=== PATIENT | male | born 1960 | race Caucasian/White ===

== ENCOUNTER 2018-11-02 10:32 | Emergency (ER) | payer BC ==
[~2018-11-02] VITALS: Ht 188 cm; Wt 99.0 kg
[~2018-11-02 10:32] MED LIST: FLEC100T PO; LISI-600 PO; PANT-47 PO
[2018-11-02 10:58] LABS: BASOPHILS # (AUTO) 0.1 X10'3 (0-0.2); BASOPHILS % (AUTO) 0.4 % (0-1); EOSINOPHILS # (AUTO) 0.4 X10'3 (0-0.9); EOSINOPHILS % (AUTO) 2.6 % (0-6); HEMATOCRIT 45.3 % (42.0-52.0); HEMOGLOBIN 14.3 g/dl (14.0-17.9); LYMPHOCYTES # (AUTO) 1.4 X10'3 (1.1-4.8); LYMPHOCYTES % (AUTO) 9.3 % (21-51); MEAN CORPUSCULAR HEMOGLOBIN 22.3 PG (27.0-31.0); MEAN CORPUSCULAR HGB CONC 31.5 g/dL (33.0-36.5); MEAN CORPUSCULAR VOLUME 70.7 FL (78-98); MEAN PLATELET VOLUME 7.9 FL (7.4-10.4); MONOCYTES # (AUTO) 0.4 X10'3 (0-0.9); MONOCYTES % (AUTO) 2.6 % (2-12); NEUTROPHILS # (AUTO) 12.6 X10'3 (1.8-7.7); NEUTROPHILS % (AUTO) 85.1 % (42-75); PLATELET COUNT 485 X10'3 (140-440); RED BLOOD COUNT 6.41 X10'6 (4.70-6.10); RED CELL DISTRIBUTION WIDTH 16.5 % (11.5-14.5); WHITE BLOOD COUNT 14.8 X10'3 (4.5-11.0)
[2018-11-02] MEDS ORDERED: DILT240C PO (10:59)
[2018-11-02] MEDS ORDERED: HYDR500C18 PO (10:59)
[2018-11-02] MEDS ORDERED: NAPR-56 PO (10:59)
[2018-11-02] MEDS ORDERED: FLEC100T2 PO (10:59)
[2018-11-02] MEDS ORDERED: ASPI-1053 PO (11:00)
[2018-11-02 11:11] LABS: ALANINE AMINOTRANSFERASE 30 U/L (12-78); ALBUMIN 4.4 G/DL (3.4-5.0); ALBUMIN/GLOBULIN RATIO 1.6 (1.1-1.5); ALKALINE PHOSPHATASE 93 IU/L (46-116); ANION GAP 8 (8-16); ASPARTATE AMINO TRANSFERASE 16 U/L (10-37); BILIRUBIN,TOTAL 0.3 MG/DL (0.1-1.0); BLOOD UREA NITROGEN 21 MG/DL (7-18); BUN/CREATININE RATIO 17.2 (5.4-32.0); CHLORIDE 107 MMOL/L (99-107); CREATININE 1.22 MG/DL (0.60-1.10); GLUCOSE 111 MG/DL (70-104); POTASSIUM 4.4 MMOL/L (3.5-5.1); SODIUM 142 MMOL/L (135-145); TOTAL CARBON DIOXIDE 27.1 MMOL/L (24-32); TOTAL PROTEIN 7.1 G/DL (6.4-8.2); eGFR 61 ML/MIN
[2018-11-02 11:15] LABS: INR 1.1 INR; PARTIAL THROMBOPLASTIN TIME 29 SECONDS (22-32); PROTHROMBIN TIME 11.4 SECONDS (9.0-12.0)
[2018-11-02 11:58] LABS: D-DIMER 0.27 MG/L FEU (0-0.50)
[2018-11-02 13:21] VITALS: BP 136/90
== END 2018-11-02 13:22 | disposition home or self-care (01) ==
LOC: ER 10:32
DX: R07.89 Other chest pain (principal); R42 Dizziness and giddiness; R06.02 Shortness of breath; I48.91 Unspecified atrial fibrillation; I10 Essential (primary) hypertension; Z88.2 Allergy status to sulfonamides; Z79.82 Long term (current) use of aspirin
CPT/HCPCS: 36415; 71045; 80053; 83880; 84145; 84484; 85025; 85379; 85610; 85730; 93005; 99284

== ENCOUNTER 2022-02-11 10:04 | Emergency (ER) | payer BC ==
[~2022-02-11] VITALS: Ht 188 cm; Wt 100.0 kg
[~2022-02-11 10:04] MED LIST changes: +ASPI-1053 PO; +DILT-94 PO; -FLEC100T PO; +FLEC100T2 PO; +HYDR500C18 PO; -LISI-600 PO; +LISI20TA28 PO; +NAPR-56 PO
[2022-02-11 10:56] LABS: BASOPHILS # (AUTO) 0.1 X10'3 (0-0.2); BASOPHILS % (AUTO) 0.7 % (0-1); EOSINOPHILS # (AUTO) 0.4 X10'3 (0-0.9); EOSINOPHILS % (AUTO) 2.8 % (0-6); HEMATOCRIT 47.4 % (42.0-52.0); LYMPHOCYTES # (AUTO) 1.1 X10'3 (1.1-4.8); LYMPHOCYTES % (AUTO) 7.3 % (21-51); MEAN CORPUSCULAR HEMOGLOBIN 22.3 PG (27.0-31.0); MEAN CORPUSCULAR HGB CONC 31.6 g/dL (33.0-36.5); MEAN CORPUSCULAR VOLUME 70.6 FL (78-98); MEAN PLATELET VOLUME 7.6 FL (7.4-10.4); MONOCYTES # (AUTO) 0.4 X10'3 (0-0.9); MONOCYTES % (AUTO) 2.5 % (2-12); NEUTROPHILS % (AUTO) 86.7 % (42-75); PLATELET COUNT 566 X10'3 (140-440); RED BLOOD COUNT 6.72 X10'6 (4.70-6.10); RED CELL DISTRIBUTION WIDTH 17.3 % (11.5-14.5)
[2022-02-11 11:16] LABS: ANION GAP 8 (8-16); BLOOD UREA NITROGEN 17 MG/DL (7-18); BUN/CREATININE RATIO 12.8 (5.4-32.0); CHLORIDE 110 MMOL/L (99-107); CREATININE 1.33 MG/DL (0.60-1.10); GLUCOSE 101 MG/DL (70-104); POTASSIUM 4.3 MMOL/L (3.5-5.1); SODIUM 145 MMOL/L (135-145); TOTAL CARBON DIOXIDE 26.9 MMOL/L (24-32)
[2022-02-11 11:17] LABS: ALANINE AMINOTRANSFERASE 34 U/L (12-78); ALBUMIN 4.2 G/DL (3.4-5.0); ALBUMIN/GLOBULIN RATIO 1.6 (1.1-1.5); ALKALINE PHOSPHATASE 88 IU/L (46-116); ASPARTATE AMINO TRANSFERASE 18 U/L (10-37); BILIRUBIN,TOTAL 0.4 MG/DL (0.1-1.0); CALCIUM 8.8 MG/DL (8.5-10.1); TOTAL PROTEIN 6.9 G/DL (6.4-8.2); eGFR 55 ML/MIN
[2022-02-11 15:44] VITALS: BP 140/90
== END 2022-02-11 15:48 | disposition home or self-care (01) ==
LOC: ER 10:04
DX: R07.89 Other chest pain (principal); I10 Essential (primary) hypertension; Z88.2 Allergy status to sulfonamides; Z88.8 Allergy status to other drugs, medicaments and biological substances
CPT/HCPCS: 36415; 71045; 80053; 83880; 84484; 85025; 93005; 99285

== ENCOUNTER 2022-11-01 16:56 | Emergency (ER) | payer BC ==
[~2022-11-01] VITALS: Ht 188 cm; Wt 103.0 kg
[2022-11-01 17:23] VITALS: BP 142/115
[2022-11-01 18:54] LABS: BASOPHILS # (AUTO) 0.1 X10'3 (0-0.2); BASOPHILS % (AUTO) 1.3 % (0-1); EOSINOPHILS # (AUTO) 0.3 X10'3 (0-0.9); EOSINOPHILS % (AUTO) 3.3 % (0-6); HEMATOCRIT 44.7 % (42.0-52.0); HEMOGLOBIN 14.3 g/dl (14.0-17.9); LYMPHOCYTES # (AUTO) 1.4 X10'3 (1.1-4.8); LYMPHOCYTES % (AUTO) 14.2 % (21-51); MEAN CORPUSCULAR HGB CONC 31.9 g/dL (33.0-36.5); MEAN CORPUSCULAR VOLUME 78.5 FL (78-98); MEAN PLATELET VOLUME 7.6 FL (7.4-10.4); MONOCYTES # (AUTO) 0.4 X10'3 (0-0.9); MONOCYTES % (AUTO) 4.3 % (2-12); NEUTROPHILS # (AUTO) 7.8 X10'3 (1.8-7.7); NEUTROPHILS % (AUTO) 76.9 % (42-75); PLATELET COUNT 376 X10'3 (140-440); RED BLOOD COUNT 5.69 X10'6 (4.70-6.10); RED CELL DISTRIBUTION WIDTH 17.9 % (11.5-14.5); WHITE BLOOD COUNT 10.1 X10'3 (4.5-11.0)
[2022-11-01 19:04] LABS: ALANINE AMINOTRANSFERASE 57 U/L (12-78); ALBUMIN 3.9 G/DL (3.4-5.0); ALBUMIN/GLOBULIN RATIO 1.3 (1.1-1.5); ALKALINE PHOSPHATASE 96 IU/L (46-116); ANION GAP 8 (8-16); ASPARTATE AMINO TRANSFERASE 25 U/L (10-37); BILIRUBIN,TOTAL 0.3 MG/DL (0.1-1.0); BLOOD UREA NITROGEN 17 MG/DL (7-18); BUN/CREATININE RATIO 13.5 (10.0-20.0); CALCIUM 8.5 MG/DL (8.5-10.1); CHLORIDE 105 MMOL/L (99-107); CREATININE 1.26 MG/DL (0.60-1.10); GLUCOSE 119 MG/DL (70-104); POTASSIUM 4.2 MMOL/L (3.5-5.1); SODIUM 140 MMOL/L (135-145); TOTAL CARBON DIOXIDE 27.1 MMOL/L (24-32); TOTAL PROTEIN 6.9 G/DL (6.4-8.2); eGFR 58 ML/MIN
[2022-11-01 19:07] LABS: LIPASE 56 U/L (73-393)
[2022-11-01 19:36] LABS: CLARITY,URINE CLEAR (Clear); COLOR,URINE YELLOW (Yellow); GLUCOSE, URINE NEGATIVE (Neg); KETONES,URINE TRACE mg/dl (Neg); LEUKOCYTE ESTERASE ,URINE NEGATIVE (Neg); NITRITES, URINE NEGATIVE (Neg); OCCULT BLOOD,URINE NEGATIVE (Neg); PH,URINE 5.5 (4.8-8.0); PROTEIN,URINE NEGATIVE (Neg); UROBILINOGEN,URINE 0.2 E.U/dL (0.2-1.0)
[2022-11-01 19:48] LABS: UA COLLECTION TYPE VOIDED
[2022-11-01] MEDS ORDERED: polyethylene glycol 3350 17gm powd pack PO STA (20:38)
[2022-11-01] MEDS ORDERED: traMADol 50MG tablet PO ONE (20:40)
[2022-11-01] MEDS ORDERED: simethicone 80mg chew tab PO ONE (20:40)
[2022-11-01] MEDS ORDERED: ondansetron 4mg rapidly disintigrating tab PO ONE (20:45)
[2022-11-01] MEDS ORDERED: TRAM50TA2 PO (20:48)
[2022-11-01] MEDS ORDERED: ONDA4TAB12 PO (20:48)
[2022-11-01] MEDS ORDERED: POLY119P2 PO (20:48)
== END 2022-11-01 21:15 | disposition home or self-care (01) ==
LOC: ER 16:58
DX: D45 Polycythemia vera (principal); R10.9 Unspecified abdominal pain; K59.00 Constipation, unspecified; I10 Essential (primary) hypertension; Z88.2 Allergy status to sulfonamides; Z79.82 Long term (current) use of aspirin; Z79.899 Other long term (current) drug therapy
CPT/HCPCS: 36415; 74176; 80053; 81003; 83690; 84484; 85025; 93005; 99285

== ENCOUNTER 2023-01-21 03:50 | Inpatient (IN) | payer BC ==
[~2023-01-21] VITALS: Ht 188 cm; Wt 101.8 kg
[~2023-01-21 03:50] MED LIST changes: +ONDA4TAB12 PO; +POLY119P2 PO
[2023-01-21] MEDS ORDERED: normal saline 1000ML IV soln IVB ONE (04:30)
[2023-01-21 04:57] LABS: HEMOGLOBIN 13.3 g/dl (14.0-17.9); WHITE BLOOD COUNT 13.8 X10'3 (4.5-11.0)
[2023-01-21 04:58] LABS: CLARITY,URINE CLOUDY (Clear); COLOR,URINE YELLOW (Yellow); GLUCOSE, URINE NEGATIVE (Neg); KETONES,URINE NEGATIVE (Neg); LEUKOCYTE ESTERASE ,URINE TRACE (Neg); NITRITES, URINE POSITIVE (Neg); OCCULT BLOOD,URINE LARGE (Neg); PROTEIN,URINE >=300 mg/dl (Neg)
[2023-01-21 04:59] LABS: BASOPHILS % (AUTO) 0.1 % (0-1); EOSINOPHILS % (AUTO) 0.2 % (0-6); HEMATOCRIT 39.8 % (42.0-52.0); LYMPHOCYTES # (AUTO) 0.6 X10'3 (1.1-4.8); MEAN CORPUSCULAR HEMOGLOBIN 26.3 PG (27.0-31.0); MEAN CORPUSCULAR HGB CONC 33.4 g/dL (33.0-36.5); MEAN CORPUSCULAR VOLUME 78.7 FL (78-98); MEAN PLATELET VOLUME 8.4 FL (7.4-10.4); MONOCYTES # (AUTO) 0.7 X10'3 (0-0.9); MONOCYTES % (AUTO) 5.2 % (2-12); NEUTROPHILS # (AUTO) 12.5 X10'3 (1.8-7.7); NEUTROPHILS % (AUTO) 90.5 % (42-75); PLATELET COUNT 385 X10'3 (140-440); RED BLOOD COUNT 5.05 X10'6 (4.70-6.10); RED CELL DISTRIBUTION WIDTH 19.5 % (11.5-14.5)
[2023-01-21] MEDS ORDERED: vancomycin 1,750 MG in NS 350ml IV soln IV ONE (05:00)
[2023-01-21 05:02] LABS: UA COLLECTION TYPE CLN CATCH MIDSTREAM
[2023-01-21 05:04] LABS: ALANINE AMINOTRANSFERASE 36 U/L (12-78); ALBUMIN 3.8 G/DL (3.4-5.0); ALBUMIN/GLOBULIN RATIO 1.2 (1.1-1.5); ALKALINE PHOSPHATASE 91 IU/L (46-116); ANION GAP 9 (8-16); ASPARTATE AMINO TRANSFERASE 16 U/L (10-37); BLOOD UREA NITROGEN 17 MG/DL (7-18); BUN/CREATININE RATIO 10.4 (10.0-20.0); CALCIUM 8.7 MG/DL (8.5-10.1); CHLORIDE 103 MMOL/L (99-107); CREATININE 1.63 MG/DL (0.60-1.10); GLUCOSE 154 MG/DL (70-104); LIPASE < 50 U/L (73-393); POTASSIUM 3.1 MMOL/L (3.5-5.1); SODIUM 138 MMOL/L (135-145); TOTAL PROTEIN 7.1 G/DL (6.4-8.2); eGFR 43 ML/MIN
[2023-01-21 05:07] LABS: WBC,URINE TNTC /HPF (0-4)
[2023-01-21 05:08] LABS: BACTERIA,URINE 3+ /HPF (Neg); MUCUS STRANDS FEW /LPF (Neg); RBC,URINE 20-50 /HPF (0-2); SQUAMOUS EPITHELIAL CELL,UR FEW /LPF (FEW); TRANSITIONAL EPI CELLS,URINE FEW /HPF
[2023-01-21] MEDS ORDERED: cefepime 2g/NS 100ml ADVANTAGE 100 ML IV ONE (06:00)
[2023-01-21 06:32] LABS: ANISOCYTOSIS 2+; PLATELET ESTIMATE NORMAL; TOTAL CELLS COUNTED 100
[2023-01-21 06:33] LABS: ELLIPTOCYTES 1+; HYPOCHROMASIA 1+; MICROCYTOSIS 1+
[2023-01-21] MEDS ORDERED: potassium Cl 20 mEq SR tablet PO STA (07:22)
[2023-01-21] MEDS ORDERED: acetaminophen 325mg tablet PO PRN ×2 (08:55)
[2023-01-21] MEDS ORDERED: magnesium Cl slow-release 64mg tablet PO PRN (08:55)
[2023-01-21] MEDS ORDERED: potassium Cl 20 mEq SR tablet PO PRN ×2 (08:55)
[2023-01-21] MEDS ORDERED: morphine 2 MG/ML inj. syringe IV PRN (08:55)
[2023-01-21] MEDS ORDERED: magnesium 2GM in 50ml NS 50 ML IV PRN (08:55)
[2023-01-21] MEDS ORDERED: HYDROcodone/acetaminophen 5mg/325mg tablet PO PRN (08:55)
[2023-01-21] MEDS ORDERED: magnesium 4gm in 100ml NS 100 ML IV PRN (08:55)
[2023-01-21] MEDS ORDERED: potassium Cl 40MEQ/1/2NS 520ml 520 ML IV PRN (08:55)
[2023-01-21] MEDS ORDERED: ondansetron/PF 4mg/2ml inj IV PRN (08:55)
[2023-01-21] MEDS: normal saline 1000ml 1,000 ML IV SCH ×2 (11:01→20:15)
[2023-01-21 11:30] VITALS: BP 153/86
[2023-01-21] MEDS ORDERED: CELE-193 PO (13:29)
[2023-01-21] MEDS ORDERED: FAMO20TA8 PO (13:51)
[2023-01-21] MEDS ORDERED: TRAM50TA2 PO (13:51)
[2023-01-21] MEDS ORDERED: RUXO20TA PO (13:51)
[2023-01-21] MEDS ORDERED: ANAG1CAP3 PO (13:51)
[2023-01-21] MEDS ORDERED: ONDA4TAB12 PO (13:51)
[2023-01-21] MEDS ORDERED: ALLO300T8 PO (13:51)
[2023-01-21] MEDS ORDERED: ondansetron 4mg rapidly disintigrating tab PO PRN (17:35)
[2023-01-21 18:00] VITALS: BP 170/86
--- NOTE | 2023-01-21 18:30 | NUR ---
Patient in room [facility]TH[facility] 4024. I have received report from ABBEY BLAND and had the opportunity to ask questions and assume patient care.
--- NOTE | 2023-01-21 18:39 | NUR ---
Problems reprioritized. Patient report given, questions answered & plan of care reviewed with EDWINA Penny.
--- NOTE | 2023-01-21 19:43 | NUR ---
TRANSFER OF CARE TO PRUDENCE RN WITH VERBAL REPORT
[2023-01-21] MEDS ORDERED: enoxaparin 40mg/0.4ml syringe SQ SCH (20:00)
[2023-01-21] MEDS: famotidine 20mg tablet PO SCH (20:14)
[2023-01-21] MEDS: JAKAFI 20 MG PO SCH (21:28)
[2023-01-21 22:00] VITALS: BP 147/83
[2023-01-22] MEDS: normal saline 1000ml 1,000 ML IV SCH ×2 (04:55→14:55)
[2023-01-22 06:00] VITALS: BP 159/95
[2023-01-22 06:36] LABS: BASOPHILS % (AUTO) 0.2 % (0-1); EOSINOPHILS # (AUTO) 0.1 X10'3 (0-0.9); EOSINOPHILS % (AUTO) 0.8 % (0-6); HEMATOCRIT 36.5 % (42.0-52.0); HEMOGLOBIN 12.1 g/dl (14.0-17.9); LYMPHOCYTES # (AUTO) 0.5 X10'3 (1.1-4.8); LYMPHOCYTES % (AUTO) 6.6 % (21-51); MEAN CORPUSCULAR HEMOGLOBIN 25.9 PG (27.0-31.0); MEAN CORPUSCULAR HGB CONC 33.1 g/dL (33.0-36.5); MEAN CORPUSCULAR VOLUME 78.3 FL (78-98); MEAN PLATELET VOLUME 8.4 FL (7.4-10.4); MONOCYTES # (AUTO) 0.5 X10'3 (0-0.9); MONOCYTES % (AUTO) 5.9 % (2-12); NEUTROPHILS # (AUTO) 7.1 X10'3 (1.8-7.7); NEUTROPHILS % (AUTO) 86.5 % (42-75); PLATELET COUNT 318 X10'3 (140-440); RED BLOOD COUNT 4.67 X10'6 (4.70-6.10); RED CELL DISTRIBUTION WIDTH 19.5 % (11.5-14.5); WHITE BLOOD COUNT 8.2 X10'3 (4.5-11.0)
[2023-01-22 06:49] LABS: ALANINE AMINOTRANSFERASE 29 U/L (12-78); ALBUMIN 2.9 G/DL (3.4-5.0); ALKALINE PHOSPHATASE 75 IU/L (46-116); ANION GAP 8 (8-16); ASPARTATE AMINO TRANSFERASE 14 U/L (10-37); BILIRUBIN,TOTAL 0.6 MG/DL (0.1-1.0); BLOOD UREA NITROGEN 13 MG/DL (7-18); BUN/CREATININE RATIO 11.5 (10.0-20.0); CALCIUM 8.3 MG/DL (8.5-10.1); CHLORIDE 108 MMOL/L (99-107); CREATININE 1.13 MG/DL (0.60-1.10); GLUCOSE 100 MG/DL (70-104); POTASSIUM 3.8 MMOL/L (3.5-5.1); SODIUM 141 MMOL/L (135-145); TOTAL CARBON DIOXIDE 25.4 MMOL/L (24-32); TOTAL PROTEIN 5.9 G/DL (6.4-8.2); eGFR 66 ML/MIN
--- NOTE | 2023-01-22 07:00 | NUR ---
Patient in room [facility]TH[facility] 4024. I have received report from EDWINA Chong and had the opportunity to ask questions and assume patient care.
[2023-01-22 07:44] LABS: ANISOCYTOSIS 1+; ELLIPTOCYTES 1+; MICROCYTOSIS 1+; PLATELET ESTIMATE NORMAL
[2023-01-22] MEDS ORDERED: allopurinol 300 MG tablet PO SCH (08:00)
[2023-01-22] MEDS ORDERED: diltiazem CD 120mg capsule (once-daily) PO SCH (08:00)
[2023-01-22] MEDS ORDERED: pantoprazole 40mg Tablet.DR PO SCH (08:00)
[2023-01-22] MEDS ORDERED: CefTRIAXone inj 2,000 MG in dextrose 5%-water 100 ML IV SCH (08:00)
[2023-01-22] MEDS ORDERED: flecainide 50mg tablet PO SCH (08:00)
[2023-01-22] MEDS: famotidine 20mg tablet PO SCH (08:56)
[2023-01-22] MEDS: JAKAFI 20 MG PO SCH (08:57)
[2023-01-22 10:00] VITALS: BP 170/84
[2023-01-22] MEDS ORDERED: tamsulosin 0.4mg capsule PO ONE (15:02)
[2023-01-22] MEDS ORDERED: CIPR-259 PO (15:11)
[2023-01-22] MEDS ORDERED: FLO0.4C PO (15:11)
--- NOTE | 2023-01-22 16:25 | NUR ---
Patient was discharged at 1605 with instructions verbalizing understanding of instructions in wheelchair accompanied by spouse and nursing staff going home via private vehicle. All lines and tubes including PIV with cannula intact have been removed. Education has been provided at bedside and all questions have been answered. Home medications have been brought from pharmacy and delivered to the patient bedside. Patient is stable and appropriate for discharge.
== END 2023-01-22 16:00 | disposition home or self-care (01) | DRG 872 ==
LOC: ER 03:50 → ED HOLD 08:56 → EDBEDREQ 10:43 → ORTHO 4S 11:46
PROVIDERS: ADMIT Internal Medicine; ATTEND Internal Medicine
DX: A41.9 Sepsis, unspecified organism (principal); N12 Tubulo-interstitial nephritis, not specified as acute or chronic; D45 Polycythemia vera; E87.6 Hypokalemia; I12.9 Hypertensive chronic kidney disease with stage 1 through stage 4 chronic kidney disease, or unspecified chronic kidney disease; I48.91 Unspecified atrial fibrillation; N18.30 Chronic kidney disease, stage 3 unspecified; R65.20 Severe sepsis without septic shock; Z88.2 Allergy status to sulfonamides; Z88.8 Allergy status to other drugs, medicaments and biological substances; Z79.899 Other long term (current) drug therapy
CPT/HCPCS: 36415; 71045; 74176; 80053; 81001; 83605; 83690; 84145; 85007; 85008; 85025; 87040; 87077; 87081; 87088; 87186; 99285; G0378; J0692; J0696; J1650; J3370; J7030; J7040; J7060

== ENCOUNTER 2025-01-26 20:18 | Emergency (ER) | payer BC ==
[~2025-01-26] VITALS: Ht 188 cm; Wt 95.5 kg
[~2025-01-26 20:18] MED LIST changes: +ALLO300T8 PO; +ANAG1CAP10 PO; -ASPI-1053 PO; +FAMO20TA8 PO; -HYDR500C18 PO; -LISI20TA28 PO; -NAPR-56 PO; +ONDA-243 PO; -ONDA4TAB12 PO; -POLY119P2 PO; +RUXO20TA PO; +TRAM50TA2 PO
[2025-01-26 20:20] VITALS: TEMP 97.8
--- NOTE | 2025-01-26 20:38 | Physician Documentation ---
History of Present Illness ~ Chief Complaint: Urinary Retention Stated Complaint: UNABLE TO URINATE Time Seen by MD: 21:07 Primary Medical Doctor: MUSA Source: patient, family HPI Patient is seen today with complaints of likely urinary retention. Patient states for the last couple of days he has only been able to manage a dribble of the urine. Patient states he had to have a Neri catheter placed a few months ago. Patient states he is currently under treatment for urinary tract infection with ciprofloxacin. Patient is seen today with his who states that his urine actually seems a little more clear and he does not seen to be feverish anymore that they were concerned about patient has urinary symptoms in his possible urinary retention. Medication Reconciliation Allergies: Coded Allergies: Sulfa (Sulfonamide Antibiotics) (Verified Allergy, Unknown, HIVES, 01/26/25) lorazepam (Verified Adverse Reaction, Severe, GETS SEVERLY AGITATED AND VIOLENT, 01/26/25) Scheduled Allopurinol (Allopurinol), 1 TAB PO DAILY, (Reported) Anagrelide HCl (Anagrelide HCl), 1 CAP PO DAILY, (Reported) Diltiazem HCl (Diltiazem 24Hr ER), 1 CAP PO DAILY, (Reported) Famotidine (Famotidine), 1 TAB PO Q12H, (Reported) Flecainide Acetate (Flecainide Acetate), 1 TAB PO DAILY, (Reported) Pantoprazole Sodium (PROTONIX tablet), 1 TABLET PO DAILY, (Reported) Ruxolitinib Phosphate (Jakafi), 1 TAB PO BID, (Reported) Scheduled PRN ONDANSETRON ODT 4mg tablet (Ondansetron Odt), 1 TABLET PO Q6H PRN for nausea/vomiting, (Reported) Tramadol Hcl (Tramadol Hcl), 1 TAB PO Q6H PRN for mild to moderate pain 1-6, (Reported) Past Medical History Past Medical History: Atrial Fibrillation, Hypertension, GI Bleed, *CANCER* Past Surgical History: noncontributory Alcohol Use: None Drug Use: none Lives with: Spouse Lives In: Home Occupation: employed Review of Systems Constitutional: Denies: chills, fever, weakness Eyes: Denies: pain, blurred vision ENT: Denies: ear pain, nose pain, throat pain, mouth pain Respiratory: Denies: cough, shortness of breath Cardiovascular: Denies: chest pain, palpitations Gastrointestinal: Denies: abdominal pain, nausea, vomiting Genitourinary: Denies: burning, dysuria Male Genitalia: Denies: penile discharge, testicular pain Neurological: Denies: headache, dizziness Musculoskeletal: Denies: pain, swelling Integumentary: Denies: rash, lesions Allergic/Immunologic: Denies: hives, itching Hematologic/Lymphatic: Denies: no symptoms reported Psychiatric: Denies: depression, anxiety Physical Exam Vital Signs: Temperature: 97.8, Source: Oral, Heart Rate: 81, Respiratory Rate: 17, BP: 117/82, Pulse Oximetry: 98, Weight: 95.450 Physical Exam General: Awake and Alert, no acute distress. HEENT: Conjunctiva pink, Sclera clear, Mucus Membranes moist. Neck: Supple without masses and tenderness. Resp: Unlabored. Lungs clear to auscultation bilaterally. Heart: Regular Rate and rhythm, normal S1 and S2 without murmur, rub or gallop. Abdomen: Soft and non tender no organomegaly . Patient on exam has no CVA tenderness. Extremities: No cyanosis,clubbing or edema. Skin: Warm and Dry. Progress Results/Orders Results/Orders Orders - ABHINAV MCMULLEN PAC Bladder Scan (01/26/25 ) * (A) Neri- Protocol * Q12H@07,19 (01/26/25 20:57) Cult Urine + [place] [address] (01/26/25 21:41) Ceftriaxone Im Kit W/Lidocaine (Rocephin (01/26/25 22:21) Completed Orders - ABHINAV MCMULLEN PAC Cbc/Diff (01/26/25 20:22) BMP (01/26/25 20:22) Lipase (01/26/25 20:22) CMP (01/26/25 20:22) Lidocaine 2% Jelly 11ml Syr (Glydo-Lidoc (01/26/25 21:00) Ua W/Microscopic, Cult If Ind (01/26/25 21:05) Medications Received in ER Medications (Trade) Dose Ordered Sig/Marylin Route PRN Reason Start Time Stop Time Status Last Admin Dose Admin (GLYDO-Lidocaine 2% Topical Jelly 11mL syringe) 1 applic ONCE ONCE TOP 01/26/25 21:00 01/26/25 21:02 DC 01/26/25 21:07 1 APPLIC Vital Signs 01/26/25 01/26/25 20:20 21:02 Temp 97.8 Pulse 81 Resp 17 B/P (MAP) 117/82 Pulse Ox 98 Laboratory Tests Test 01/26/25 21:05 01/26/25 21:07 Urine Specimen Description Neri cath Urine Color Yellow Urine Clarity Clear Urine pH 6.0 Urine Specific [place] >=1.030 Urine Protein 30 H Urine Glucose (UA) Negative Urine Ketones Negative Urine Occult Blood Small Urine Nitrite Negative Urine Bilirubin Negative Urine Urobilinogen 1.0 Urine Leukocyte Esterase Trace H Urine RBC 10-20 Urine WBC 50-100 H Urine Squamous Epithelial Cells None seen Urine Bacteria 1+ Urine Culture Indicated Indicated Volume Urine Centrifuged 10 ml Urine Comment White Blood Count 9.9 Red Blood Count 4.04 L Hemoglobin 12.8 L Hematocrit 35.8 L Mean Corpuscular Volume 88.5 Mean Corpuscular Hemoglobin 31.7 H Mean Corpuscular Hemoglobin Concent 35.8 Red Cell Distribution Width 14.9 H Platelet Count 391 Mean Platelet Volume 8.4 Neutrophils (%) (Auto) 89.4 H Lymphocytes (%) (Auto) 4.3 L Monocytes (%) (Auto) 5.1 Eosinophils (%) (Auto) 0.7 Basophils (%) (Auto) 0.5 Neutrophils # (Auto) 8.8 H Lymphocytes # (Auto) 0.4 L Monocytes # (Auto) 0.5 Eosinophils # (Auto) 0.1 Basophils # (Auto) 0.0 CBC Comment Sodium Level 139 Potassium Level 3.8 Chloride Level 105 Carbon Dioxide Level 27.6 Anion Gap 6 L Blood Urea Nitrogen 15 Creatinine 1.55 H Estimated GFR/1.73 m2 46 BUN/Creatinine Ratio 9.7 L Glucose Level 110 H Calcium Level 8.3 L Total Bilirubin 0.5 Aspartate Amino Transf (AST/SGOT) 27 Alanine Aminotransferase (ALT/SGPT) 46 Alkaline Phosphatase 71 Total Protein 6.5 Albumin 3.2 L Globulin 3.3 Albumin/Globulin Ratio 1.0 L Lipase 19 Chemistry Comments Medical Decision Making Findings Patient is seen today with complaints of likely urinary retention. Patient states for the last couple of days he has only been able to manage a dribble of the urine. Patient states he had to have a Neri catheter placed a few months ago. Patient states he is currently under treatment for urinary tract infection with ciprofloxacin. Patient is seen today with his who states that his urine actually seems a little more clear and he does not seen to be feverish anymore that they were concerned about patient has urinary symptoms in his possible urinary retention. Patient was given dose of Rocephin IM in the ED tonight along with Pyridium by mouth. Prescription of Pyridium sent to patient's pharmacy. Patient will follow up with primary care early next week and get the culture and sensitivity report as soon as possible. Return to ED with any worsening, concerning or changing symptoms. Patient will continue adequate fluid intake. Neri catheter showed less than 100 cc of fluid/urine. Departure Disposition: HOME / SELF CARE / HOMELESS Impression: Primary Impression: Acute UTI Condition: Improved Additional Instructions: Patient was given dose of Rocephin IM in the ED tonight along with Pyridium by mouth. Prescription of Pyridium sent to patient's pharmacy. Patient will follow up with primary care early next week and get the culture and sensitivity report as soon as possible. Return to ED with any worsening, concerning or changing symptoms. Patient will continue adequate fluid intake. Neri catheter showed less than 100 cc of fluid/urine. Referrals: NO PRIMARY CARE PROVIDER (PCP) Prescriptions Phenazopyridine HCl (Pyridium) 200 Mg Tablet 1 TAB PO Q8H for urinary discomfort for 3 Days, #9 TAB 0 Refills Prov: ABHINAV MCMULLEN 01/26/25 Signature Scribe Signature: No scribe Attestation: No scribe ABHINAV MCMULLEN Jan 26, 2025 20:38
[2025-01-26] MEDS: LidoCAINE 2% Topical Jelly 11mL syringe (UROJET) TOP ONE (21:07)
[2025-01-26 21:33] LABS: BILIRUBIN,URINE NEGATIVE (Neg); CLARITY,URINE CLEAR (Clear); COLOR,URINE YELLOW (Yellow); GLUCOSE, URINE NEGATIVE (Neg); KETONES,URINE NEGATIVE (Neg); LEUKOCYTE ESTERASE ,URINE TRACE (Neg); NITRITES, URINE NEGATIVE (Neg); OCCULT BLOOD,URINE SMALL (Neg); PROTEIN,URINE 30 mg/dl (Neg); UA COLLECTION TYPE FOLEY CATH
[2025-01-26 21:41] LABS: ALANINE AMINOTRANSFERASE 46 U/L (12-78); ALBUMIN 3.2 G/DL (3.4-5.0); ALKALINE PHOSPHATASE 71 IU/L (46-116); ANION GAP 6 (8-16); ASPARTATE AMINO TRANSFERASE 27 U/L (10-37); BILIRUBIN,TOTAL 0.5 MG/DL (0.1-1.0); BLOOD UREA NITROGEN 15 MG/DL (7-18); BUN/CREATININE RATIO 9.7 (10.0-20.0); CALCIUM 8.3 MG/DL (8.5-10.1); CHLORIDE 105 MMOL/L (99-107); CREATININE 1.55 MG/DL (0.60-1.10); GLUCOSE 110 MG/DL (70-104); LIPASE 19 U/L (16-77); POTASSIUM 3.8 MMOL/L (3.5-5.1); SODIUM 139 MMOL/L (135-145); TOTAL CARBON DIOXIDE 27.6 MMOL/L (24-32); TOTAL PROTEIN 6.5 G/DL (6.4-8.2); eCRCL 57 ML/MIN; eGFR 46 ML/MIN
[2025-01-26 21:41] LABS: BACTERIA,URINE 1+ /HPF (Neg); SQUAMOUS EPITHELIAL CELL,UR NONE SEEN /LPF (FEW); WBC,URINE 50-100 /HPF (0-4)
[2025-01-26 22:02] LABS: BASOPHILS % (AUTO) 0.5 % (0-1); EOSINOPHILS # (AUTO) 0.1 X10'3 (0-0.9); EOSINOPHILS % (AUTO) 0.7 % (0-6); HEMATOCRIT 35.8 % (42.0-52.0); HEMOGLOBIN 12.8 g/dl (14.0-17.9); LYMPHOCYTES # (AUTO) 0.4 X10'3 (1.1-4.8); LYMPHOCYTES % (AUTO) 4.3 % (21-51); MEAN CORPUSCULAR HEMOGLOBIN 31.7 PG (27.0-31.0); MEAN CORPUSCULAR HGB CONC 35.8 g/dL (33.0-36.5); MEAN CORPUSCULAR VOLUME 88.5 FL (78-98); MEAN PLATELET VOLUME 8.4 FL (7.4-10.4); MONOCYTES # (AUTO) 0.5 X10'3 (0-0.9); MONOCYTES % (AUTO) 5.1 % (2-12); NEUTROPHILS # (AUTO) 8.8 X10'3 (1.8-7.7); NEUTROPHILS % (AUTO) 89.4 % (42-75); PLATELET COUNT 391 X10'3 (140-440); RED BLOOD COUNT 4.04 X10'6 (4.70-6.10); RED CELL DISTRIBUTION WIDTH 14.9 % (11.5-14.5); WHITE BLOOD COUNT 9.9 X10'3 (4.5-11.0)
[2025-01-26] MEDS ORDERED: PHEN-716 PO (22:32)
[2025-01-26] MEDS: CefTRIAXone 1000mg IM Kit (w/lidocaine diluent) IM STA (22:36)
[2025-01-26] MEDS: phenazopyridine 100mg tablet PO STA (22:45)
[2025-01-26 22:54] VITALS: BP 132/70; PULSE 61; RESP 16; O2SAT 91
== END 2025-01-26 23:03 | disposition home or self-care (01) ==
LOC: ER 20:18
DX: N39.0 Urinary tract infection, site not specified (principal); I10 Essential (primary) hypertension; I48.91 Unspecified atrial fibrillation; Z88.2 Allergy status to sulfonamides; Z88.8 Allergy status to other drugs, medicaments and biological substances; Z79.899 Other long term (current) drug therapy
CPT/HCPCS: 36415; 51702; 80053; 81001; 83690; 85025; 87088; 96372; 99284; J0696; A4314; C1758